=== PATIENT | female | born 1935 | race African-American/Black ===

== ENCOUNTER 2023-08-05 10:15 | Emergency (ER) | payer MEDICARE ==
[~2023-08-05] VITALS: Ht 149.9 cm; Wt 48.0 kg
[~2023-08-05 10:15] MED LIST: AMLO10TA80; CLOP75TA33; HYDROXYUREA *; LEVO750T68 MT; LOSA25TA26; TOBR5DRO13; [UNRECOGNIZED DRUG - CODE] PO
[2023-08-05 10:19] VITALS: O2SAT 92
[2023-08-05 10:57] LABS: BASOPHILS % 0.4 % (0.0-2.0); DIFFERENTIAL COMMENT 0; EOSINOPHILS % 1.6 % (0.0-5.0); HEMATOCRIT. 35.4 % (36.0-48.0); HEMOGLOBIN. 11.9 g/dL (12.0-16.0); LYMPHOCYTES % 12.8 % (20.0-50.0); MEAN CORPUSCULAR HEMOGLOBIN 34.5 pg (28.0-32.0); MEAN CORPUSCULAR HGB CONC 33.6 g/dL (31.0-37.0); MEAN CORPUSCULAR VOLUME 102.7 fL (81.0-99.0); NEUTROPHILS % 79.2 % (40.0-76.0); PLATELET 191 x1000/uL (130-400); RED BLOOD CELL COUNT 3.45 mill/uL (4.2-5.4); RED CELL DISTRIBUTION WIDTH 16.3 % (11.6-14.6); WHITE BLOOD COUNT 5.6 x1000/uL (4.5-11.0)
[2023-08-05 11:08] LABS: INR 1.1; PROTHROMBIN TIME 11.8 sec (9.6-11.0)
[2023-08-05 11:23] LABS: ALANINE AMINOTRANSFERASE 16 IU/L (10-49); ALBUMIN 4.7 g/dL (3.2-4.8); ASPARTATE AMINOTRANSFERASE 33 IU/L (<34); BILIRUBIN TOTAL 0.4 mg/dL (0.1-1.0); CALCIUM 9.2 mg/dL (8.7-10.4); CARBON DIOXIDE 26 mEq/L (21-32); CHLORIDE 105 mEq/L (98-107); GLUCOSE 129 mg/dL (70-105); SODIUM 140 mEq/L (136-145); UREA NITROGEN BLOOD 17 mg/dL (9-23)
[2023-08-05 13:24] LABS: TROPONIN I HIGH SENSITIVITY 9 ng/L (3.0-34)
[2023-08-05 15:29] VITALS: BP 139/55; PULSE 70; RESP 18; TEMP 98
== END 2023-08-05 15:30 | disposition home or self-care (01) ==
LOC: ER 10:28
DX: R07.89 Other chest pain (principal); I10 Essential (primary) hypertension; E78.00 Pure hypercholesterolemia, unspecified; J44.1 Chronic obstructive pulmonary disease with (acute) exacerbation; Z90.49 Acquired absence of other specified parts of digestive tract
CPT/HCPCS: 36415; 71045; 80053; 83880; 84484; 85025; 93005; 99285